=== PATIENT | male | born 1995 | race Two or more races ===

== ENCOUNTER 2024-03-07 17:07 | Emergency (ER) | payer MEDICAID, OTHER ==
[~2024-03-07] VITALS: Ht 172.7 cm; Wt 75.0 kg
[2024-03-07 17:07] VITALS: BP 0/0; PULSE 0; RESP 0; TEMP 99.2; O2SAT 78
[2024-03-07] MEDS ORDERED: EPINEPHrine HCL 1 MG/10 ML SYRG ONE (17:27)
== END 2024-03-07 17:35 ==
LOC: ER 17:07 → EDBD 17:07 → EDSEX 17:07 → ER 17:35
DX: I46.9 Cardiac arrest, cause unspecified (principal); E11.9 Type 2 diabetes mellitus without complications; Q28.9 Congenital malformation of circulatory system, unspecified; Z94.1 Heart transplant status; Z88.6 Allergy status to analgesic agent; Z88.1 Allergy status to other antibiotic agents
CPT/HCPCS: 92950; 99285; J0171